=== PATIENT | female | born 1975 | race Caucasian/White ===

== ENCOUNTER → 2019-08-18 11:30 | Outpatient (BNVA) | payer OTHER, SELFPAY | PROVIDERS: Family Provider Nurse Practitioner Family; Visit Provider Nurse Practitioner | DX: B34.9 Viral infection, unspecified (principal); Z20.828 Contact with and (suspected) exposure to other viral communicable diseases | CPT/HCPCS: 87635 ==

== ENCOUNTER → 2019-08-23 16:18 | Outpatient (BNVA) | payer OTHER, SELFPAY | PROVIDERS: Family Provider Nurse Practitioner Family; Visit Provider Nurse Practitioner Family | DX: R06.02 Shortness of breath (principal); J18.9 Pneumonia, unspecified organism | CPT/HCPCS: 71046 ==

== ENCOUNTER 2019-08-24 16:47 | Emergency (ER) | payer OTHER, SELFPAY ==
[2019-08-24 16:56] VITALS: BMI 26.6
--- NOTE | 2019-08-24 17:34 | XR_ITS ---
WS: [id number] PORTABLE CHEST HISTORY: cough COMPARISON: 08/23/2019 Moderate pulmonary hyperinflation. Increased thickening throughout both lungs, greatest on the LEFT. Slight improvement since the prior radiograph of 08/23/2019. No pleural effusion or pneumothorax. Cardiac size: Normal. Mediastinum/Aorta: Normal mediastinum. No osseous abnormality seen. XR/XR chest 1V portable [id number] IMPRESSION: 1. Hyperinflation with bilateral scattered ill-defined opacifications, likely pneumonia. 2. Emphysema.
[2019-08-24] MEDS: cefTRIAXone 1,000 MG in sodium chloride 0.9% (plus) 50 ML 100 MG IV (18:08)
--- NOTE | 2019-08-24 18:08 | ED_ITS ---
HPI - SOB/Dyspnea General: Chief Complaint: Shortness of Breath/Dyspnea Stated Complaint: COUGH/SOB Time Seen by Provider: 08/24/19 17:28 History of Present Illness: HPI Narrative: Chely is a 44-year-old female who comes in with a complaint of 1 week of dyspnea. She has a cough productive of yellow and green sputum. She has subjective fevers. Initially she was tested for COVID-19 but this was found to be negative. The patient continues to cough and feels short of breath and does not feel better clinically. Because of this she was sent here for repeat testing and further evaluation. Patient denies any chronic medical problems and is not a smoker. She has no chest pain. Associated symptoms: Reports hemoptysis; Deny abdominal pain, chest congestion, chest pain, diaphoresis, dizziness, extremity pain, fever(s), nausea, orthopnea, palpitations, polydipsia, syncope or vomiting Review of Systems General: Reports: other (negative unless marked) Const: Reports: chills, body aches, fatigue, malaise and night sweats; Denies: fever or diaphoresis Eyes: Denies: change in vision or blurry vision ENMT: Denies: throat pain, painful swallowing, hoarseness, ear pain, ear discharge, Change in hearing or nasal discharge Card: Denies: chest pain, palpitations, irregular heart rhythm, syncope, pre- syncope, shortness of breath on exertion or shortness of breath when lying down Resp: Reports: shortness of breath, productive cough, change in phlegm color and coughing up blood; Denies: non-productive cough, wheezing or chest congestion GI: Denies: abdominal pain, nausea, vomiting, vomiting blood, coffee grounds in vomit, diarrhea, constipation, cramping, blood in stool or black tarry stool : Denies: flank pain, painful urination, urinary frequency, urinary urgency, decreased urine ouput, urinary incontinence or blood in urine Musc: Denies: neck pain, back pain, extremity pain, extremity swelling, joint pain, joint swelling, joint warmth or joint stiffness Skin/Breast: Denies: rash, skin tenderness or yellow skin Neuro: Denies: headache, numbness in extremities, weakness in extremities, changes in sensation, lack of coordination, difficulty walking, dizziness, vertigo or confusion Endo: Denies: excessive thirst, tired all the time, cold intolerance, excessive sweating, flushing or hot flashes Don/Lymph: Denies: easy bruising, easy bleeding, petechiae or enlarged lymph nodes All/Imm: Denies: hives, throat swelling, tongue swelling, facial swelling or acute wheezing PFSH ED PFSH: Medical History (Updated 08/24/19 @ 20:35 by Carolina Rosario) No pertinent past medical history Surgical History (Updated 08/24/19 @ 18:21 by Carolina Rosario) History of cholecystectomy Social History Smoking and tobacco status: never smoked Physical Exam Const: COMMON NORMALS: no apparent distress, oriented x3, no limitations, healthy appearing and well nourished EXAM LIMITATIONS: no altered mental status GENERAL APPEARANCE: cooperative, well kempt and well developed ORIENTATION/CONSCIOUSNESS: Yes awake HENMT: COMMON NORMALS: normocephalic, head/scalp atraumatic, hearing grossly normal bilaterally, external ears normal, EAC's normal, external nose normal and moist oral mucous membranes HEAD & SCALP: normal to inspection, normocephalic and atraumatic FACE & SINUS: normal facial exam and face symmetric NOSE: external nose normal and nares normal EXTERNAL EAR: Yes external ears normal EXTERNAL AUDITORY CANAL: EAC's normal MOUTH: oral and palatal mucosa normal and tongue normal Eye: COMMON NORMALS: PERRL, EOMs intact bilaterally, conjunctivae normal and no scleral icterus GENERAL EYE: normal appearance of both eyes and normal light reflex CONJUNCTIVA: Yes conjunctivae normal SCLERA: sclerae normal CORNEA: Yes corneas normal PUPIL: Yes PERRL DIRECT OPHTHALMOSCOPY: Yes normal light reflex Neck/C-Spine: COMMON NORMALS: full ROM, no lymphadenopathy, supple, no meningeal signs and no JVD GENERAL: Yes normal visual inspection and Yes trachea midline CERVICAL SPINE: Yes cervical ROM normal Chest: COMMONS NORMALS: inspection of chest normal and palpation of chest normal Resp: COMMON NORMALS: normal respiratory effort, no retractions, no use of accessory muscles and clear to auscultation bilaterally EFFORT & INSPECTION: Yes able to speak in complete sentences AUSCULTATION: clear to auscultation bilaterally Cardio: COMMON NORMALS: no JVD, regular rate, regular rhythm, S1 normal heart sound, S2 normal heart sound, no gallops, no clicks, no murmurs and no rub JUGULAR VENOUS DISTENTION: no JVD RATE: regular rate RHYTHM: regular rhythm HEART SOUNDS: S1 normal and S2 normal GI: COMMON NORMALS: soft to palpation, non-tender, no hepatosplenomegaly and no masses INSPECTION: Yes normal to inspection PALPATION: Yes soft and Yes no hepatosplenomegaly : COMMON NORMALS: Yes no CVA tenderness BLADDER/KIDNEY EXAM: Yes no CVA tenderness Back/Pelvis: COMMON NORMALS: no CVA tenderness, thoracic and lumbar spine normal to inspection, no thoracic nor lumbar tenderness and thoraco-lumbar ROM normal Extremity: COMMON NORMALS: normal to inspection, full ROM, normal capillary refill, no joint enlargement, no clubbing, cyanosis or edema and no calf tenderness Neuro: COMMON NORMALS: oriented x3, CN's II-XII intact bilaterally, moves all extremities, no focal motor deficits and no sensory deficits noted MENINGEAL SIGNS: Yes no meningeal signs Psych: COMMON NORMALS: mental status grossly normal, thought process normal, cooperative, affect normal, speech normal and activity/motor behavior normal APPEARANCE: Yes well kempt SPEECH: Yes normal speech THOUGHT PROCESS: normal thought process Skin: COMMON NORMALS: no rashes or lesions noted, skin turgor normal, no jaundice, no petechiae and no mottling GENERAL SKIN EXAM: no rashes or lesions noted and turgor normal Course Vital Signs: Vital signs: Vital Signs Pulse Rate 91 08/24/19 20:00 Respiratory Rate 20 H 08/24/19 20:00 Blood Pressure 106/66 08/24/19 20:00 Pulse Oximetry 96 08/24/19 20:00 MDM - SOB/Dyspnea MDM Narrative: Medical decision making narrative: Chely is a very nice 44-year-old female who comes in at the request of her nurse practitioner for recheck of her pneumonia. She also wanted repeat COVID-19 testing performed. This test has been sent. The patient has multilobar pneumonia but is not hypoxic, not tachypneic and does not show any sign of sepsis or severe illness clinically. Her CURB 65 score is 0 and her pneumonia severity index score is 34 indicating a 0.1% mortality rate. I reviewed the case with Dr. Harris who states that he feels the patient can go home but will need to change her antibiotic coverage from Augmentin to Levaquin. He thinks that she should be fine at home with her age and having no comorbidities. She is only been on the Augmentin for 5 days but I have told her that she needs to stop this now that she is on Levaquin. Nonetheless because she is had a cough occasional of blood-tinged only on 1 or 2 episodes I have offered to admit her to the hospital but she declines. She states that she is feeling much better and wants to go home and wants to be with her children. She does understand that she needs to be on self quarantine and she is potentially infectious. Her CT did not show groundglass infiltrates consistent with the coronavirus but shows classic bronchopulmonary pneumonia. The patient does agree to return should she worsen and she knows that she can call EMS if necessary. Lab Data: Attestation: I reviewed the patient's lab results. Labs: Lab Results 08/24/19 08/24/19 08/24/19 Range/Units 17:47 17:47 17:47 WBC 8.6 (4.0-10.0) 10^3/ uL RBC 4.92 (4.1-5.3) 10^6/u L Hgb 13.4 (11.5-15.3) g/dL Hct 42.7 (37.0-47.0) % MCV 86.8 (81-99) fL MCH 27.2 L (28.0-34.0) pg MCHC 31.4 (30.0-36.0) g/dL RDW 13.2 (12.1-15.1) % Plt Count 458 H (130-400) 10^3/c mm MPV 10.7 H (7.4-10.4) fL Neut % (Auto) 57.9 % Lymph % (Auto) 29.8 % [place] % (Auto) 6.2 % Eos % (Auto) 4.2 % Baso % (Auto) 0.6 % Neut # (Auto) 5.0 (1.8-7.7) 10^3/u L Lymph # (Auto) 2.6 (0.8-4.8) 10^3/u L [place] # (Auto) 0.5 (0.2-0.9) 10^3/u L Eos # (Auto) 0.4 (0.0-0.8) 10^3/u L Baso # (Auto) 0.1 (0.0-0.1) 10^3/u L Nucleated RBC % (a uto) 0 % Nucleated RBCs # 0.0 /100WBC D-Dimer 0.60 H (0-0.59) ug/mIFE U Specimen Type Sample Site ABG pH (7.35-7.45) ABG pCO2 (35-45) mmHg ABG pO2 (80.0-100.0) mmH g ABG HCO3 (22-26) mmol/L ABG Base Excess (-2.0-2.0) mmol/ L Vicente Test Hematocrit (37-47) % O2 Delivery Device Product Assurance Engineer ID Sodium 139 (136-145) mmol/L Potassium 4.1 (3.5-5.1) mmol/L Chloride 100 (98-107) mmol/L Carbon Dioxide 25 (22-29) mmol/L Anion Gap 18.1 (5-19) BUN 9 (6-20) mg/dL Creatinine 0.5 (0.5-0.9) mg/dL GFR Calculation 134.0 H (90-130) mL/min Glucose 97 (65-115) mg/dL Calculated Osmolal ity 284 L (285-295) mOsm/k g Lactic Acid (0.5-2.2) mmol/L Calcium 9.7 (8.5-10.5) mg/dL Total Bilirubin 0.3 (0.15-1.2) mg/dL AST 24 (0-32) U/L ALT 52 H (0-33) U/L Alkaline Phosphata se 186 H (35-105) IU/L Total Protein 7.8 (6.6-8.7) g/dL Albumin 4.1 (3.5-5.2) g/dL Globulin 3.7 (1.3-4.6) g/dL Influenza Type A A g (Negative) Influenza Type B A g (Negative) 08/24/19 08/24/19 08/24/19 Range/Units 17:47 18:29 18:35 WBC (4.0-10.0) 10^3/ uL RBC (4.1-5.3) 10^6/u L Hgb (11.5-15.3) g/dL Hct (37.0-47.0) % MCV (81-99) fL MCH (28.0-34.0) pg MCHC (30.0-36.0) g/dL RDW (12.1-15.1) % Plt Count (130-400) 10^3/c mm MPV (7.4-10.4) fL Neut % (Auto) % Lymph % (Auto) % [place] % (Auto) % Eos % (Auto) % Baso % (Auto) % Neut # (Auto) (1.8-7.7) 10^3/u L Lymph # (Auto) (0.8-4.8) 10^3/u L [place] # (Auto) (0.2-0.9) 10^3/u L Eos # (Auto) (0.0-0.8) 10^3/u L Baso # (Auto) (0.0-0.1) 10^3/u L Nucleated RBC % (a uto) % Nucleated RBCs # /100WBC D-Dimer (0-0.59) ug/mIFE U Specimen Type Arterial Sample Site Radial, right ABG pH 7.51 H (7.35-7.45) ABG pCO2 26.9 L (35-45) mmHg ABG pO2 146.0 H (80.0-100.0) mmH g ABG HCO3 21.4 L (22-26) mmol/L ABG Base Excess -0.5 (-2.0-2.0) mmol/ L Vicente Test Pos Hematocrit 38.4 (37-47) % O2 Delivery Device Room air Product Assurance Engineer ID broma Sodium (136-145) mmol/L Potassium (3.5-5.1) mmol/L Chloride (98-107) mmol/L Carbon Dioxide (22-29) mmol/L Anion Gap (5-19) BUN (6-20) mg/dL Creatinine (0.5-0.9) mg/dL GFR Calculation (90-130) mL/min Glucose (65-115) mg/dL Calculated Osmolal ity (285-295) mOsm/k g Lactic Acid 1.0 (0.5-2.2) mmol/L Calcium (8.5-10.5) mg/dL Total Bilirubin (0.15-1.2) mg/dL AST (0-32) U/L ALT (0-33) U/L Alkaline Phosphata se (35-105) IU/L Total Protein (6.6-8.7) g/dL Albumin (3.5-5.2) g/dL Globulin (1.3-4.6) g/dL Influenza Type A A g Negative (Negative) Influenza Type B A g Negative (Negative) Imaging Data^: CXR: Attestation: I personally reviewed and interpreted this imaging study as fol lows: My impression: Left upper and left lower lobe infiltrates. Probable right lower lobe infiltrate. Similar possibly slightly better than previous x-ray of [address] Chest: Radiologist's impression: [place] [address] CT Scan Report Signed Patient: Chely Lopez Unit #: [id number] : [id number] Age/Sex: 44 / F ADM Date: 08/24/19 Loc: ER Room/Bed: Attending Dr: Ordering Provider/Ordering MD: Carolina Rosario DO Date of Service: 08/24/19 Procedure(s): CT angio chest PE protcl [id number] Accession Number(s): [id number] Report Number: [id number] PROCEDURE INFORMATION: Exam: CT Angiography Chest With Contrast Exam date and time: 08/24/2019 6:59 PM Age: 44 years old Clinical indication: Cough and dyspnea; Chest pain and other: Pain between shoulder blades TECHNIQUE: Imaging protocol: Computed tomographic angiography of the chest with intravenous contrast. 3D rendering: MIP and/or 3D reconstructed images were created by the technologist. Total DLP: 621.54 mGy-cm Radiation optimization: All CT scans at this facility use at least one of these dose optimization techniques: automated exposure control; mA and/or kV adjustment per patient size (includes targeted exams where dose is matched to clinical indication); or iterative reconstruction. Contrast material: OMNI 350; Contrast volume: 69 ml; Contrast route: IV; COMPARISON: CR XR chest 1V portable [id number] 08/24/2019 5:50 PM FINDINGS: Pulmonary arteries: There is no evidence of filling defects within the pulmonary arterial circulation to suggest pulmonary embolism. Aorta: Unremarkable. No aortic aneurysm. No aortic dissection. Lungs: There is mild bronchial wall thickening in bronchi in the left upper lobe with areas of atelectasis and consolidation in a peribronchial pattern in the posterior aspect of the left apex and also in more anterior segments in keeping with some bronchopneumonia. There is small area of atelectasis and bronchial wall thickening in the lateral basal portion of the left lower lobe which may represent additional bronchopneumonia in small areas of similar finding in the posterior basal and medial basal segments of the right lower lobe. Findings most likely represent some multifocal bronchitis and bronchopneumonia. Correlation with the clinical history and findings is suggested. Pleural space: There are no pleural effusions present. Heart: Unremarkable. No cardiomegaly. No pericardial effusion. Lymph nodes: There are enlarged lymph nodes in the left AP window measuring up to 13 x 19 mm, likely reactive adenopathy. Bones/joints: Unremarkable. No acute fracture. Soft tissues: Unremarkable. CT/CT angio chest PE protcl [id number] IMPRESSION: 1. No evidence of pulmonary embolism. 2. Bilateral bronchopneumonia. Radiation Dose CTDIVOL = (mGy): DLP = 621.54 (mGy-cm) Dictated By: Brian Real Signed By: Brian Real Signed Date/Time: 08/10 DD/ 23 Discharge Plan Discharge Patient Disposition: Home, Self-Care Clinical Impression: Community acquired pneumonia Qualifiers: Laterality: unspecified laterality Qualified Code(s): J18.9 - Pneumonia, unspecified organism Condition: Stable Prescriptions: New Levaquin 750 mg tablet 750 mg PO DAILY 7 Days RF: 0 No Action amoxicillin-pot clavulanate [Augmentin] 875-125 mg tablet 1 tab PO BID Qty: 20 RF: 0 acetaminophen 325 mg Tablet 325 mg PO QID PRN (Reason: FEVER/PAIN) RF: 0 ibuprofen 800 mg Tablet 800 mg PO Q6H PRN (Reason: FEVER/PAIN) RF: 0 Vicks DayQuil Cough 5 mg/5 mL Syrup 10 mg PO Q4H PRN (Reason: Cough) RF: 0 [facility] NyQuil Cold-C 2-15 mg/15 mL Liquid See Rx Instructions .ROUTE .COMPLEX RF: 0 Discharge Orders: Discharge Order (Routine); Ordered 08/24/19 Ordered By: Carolina Rosario Referrals: WILBERTO Pack, SAVAGE [Primary Care Provider] - 1-3 days Shanique Harris MD [Physician] - 1-3 days (Call Dr. Harris's office tomorrow as he wants to see how you are doing.) Discharge Diet: Advance as tolerated Discharge Activity: Increase activity as tolerated Patient Instructions: Bacterial Pneumonia (ED) Activity Restrictions/Additional Instructions: Please return to the ER immediately for any of the signs or symptoms listed on your discharge instruction sheets, worsening/changing of your symptoms, you are not getting better as quickly as expected, or for ANY other cause or concerns. You have been offered admission for further observation and care but have declined. If you change your mind or your symptoms change/worsen in any way please call EMS or return to the ER immediately for recheck and further evaluation and care. Be certain to get in contact with WILBERTO pack as well as Dr. Harris's office tomorrow. Coding Level of Care Code ED Transitional Kindergarten Teacher for Chg Fwd Exam Comprehensive
[2019-08-24 18:16] LABS: Basophils # 0.1 10^3/uL (0.0-0.1); Basophils % 0.6 %; Eosinophils # 0.4 10^3/uL (0.0-0.8); Eosinophils % 4.2 %; Hematocrit 42.7 % (37.0-47.0); Hemoglobin 13.4 g/dL (11.5-15.3); Lymphocytes # 2.6 10^3/uL (0.8-4.8); Lymphocytes % 29.8 %; Mean Corpuscular HGB Conc 31.4 g/dL (30.0-36.0); Mean Corpuscular Hemoglobin 27.2 pg (28.0-34.0); Mean Corpuscular Volume 86.8 fL (81-99); Mean Platelet Volume 10.7 fL (7.4-10.4); Monocytes # 0.5 10^3/uL (0.2-0.9); Monocytes % 6.2 %; Neutrophils % 57.9 %; Nucleated Red Blood Cells % 0 %; Platelet Count 458 10^3/cmm (130-400); Red Blood Count 4.92 10^6/uL (4.1-5.3); Red Cell Distribution Width 13.2 % (12.1-15.1); White Blood Count 8.6 10^3/uL (4.0-10.0)
--- NOTE | 2019-08-24 18:18 | CTR_ITS ---
PROCEDURE INFORMATION: Exam: CT Angiography Chest With Contrast Exam date and time: 08/24/2019 6:59 PM Age: 44 years old Clinical indication: Cough and dyspnea; Chest pain and other: Pain between shoulder blades TECHNIQUE: Imaging protocol: Computed tomographic angiography of the chest with intravenous contrast. 3D rendering: MIP and/or 3D reconstructed images were created by the technologist. Total DLP: 621.54 mGy-cm Radiation optimization: All CT scans at this facility use at least one of these dose optimization techniques: automated exposure control; mA and/or kV adjustment per patient size (includes targeted exams where dose is matched to clinical indication); or iterative reconstruction. Contrast material: OMNI 350; Contrast volume: 69 ml; Contrast route: IV; COMPARISON: CR XR chest 1V portable [id number] 08/24/2019 5:50 PM FINDINGS: Pulmonary arteries: There is no evidence of filling defects within the pulmonary arterial circulation to suggest pulmonary embolism. Aorta: Unremarkable. No aortic aneurysm. No aortic dissection. Lungs: There is mild bronchial wall thickening in bronchi in the left upper lobe with areas of atelectasis and consolidation in a peribronchial pattern in the posterior aspect of the left apex and also in more anterior segments in keeping with some bronchopneumonia. There is small area of atelectasis and bronchial wall thickening in the lateral basal portion of the left lower lobe which may represent additional bronchopneumonia in small areas of similar finding in the posterior basal and medial basal segments of the right lower lobe. Findings most likely represent some multifocal bronchitis and bronchopneumonia. Correlation with the clinical history and findings is suggested. Pleural space: There are no pleural effusions present. Heart: Unremarkable. No cardiomegaly. No pericardial effusion. Lymph nodes: There are enlarged lymph nodes in the left AP window measuring up to 13 x 19 mm, likely reactive adenopathy. Bones/joints: Unremarkable. No acute fracture. Soft tissues: Unremarkable. CT/CT angio chest PE protcl [id number] IMPRESSION: 1. No evidence of pulmonary embolism. 2. Bilateral bronchopneumonia. Radiation Dose CTDIVOL = (mGy): DLP = 621.54 (mGy-cm)
[2019-08-24 18:37] LABS: Alanine Aminotransferase 52 U/L (0-33); Albumin Level 4.1 g/dL (3.5-5.2); Alkaline Phosphatase 186 IU/L (35-105); Anion Gap 18.1 (5-19); Aspartate Amino Transferase 24 U/L (0-32); Blood Urea Nitrogen 9 mg/dL (6-20); Calcium 9.7 mg/dL (8.5-10.5); Carbon Dioxide 25 mmol/L (22-29); Chloride 100 mmol/L (98-107); Globulin 3.7 g/dL (1.3-4.6); Glucose 97 mg/dL (65-115); Osmolality Calculated 284 mOsm/kg (285-295); Potassium 4.1 mmol/L (3.5-5.1); Sodium 139 mmol/L (136-145); Total Bilirubin 0.3 mg/dL (0.15-1.2); Total Protein 7.8 g/dL (6.6-8.7)
[2019-08-24 18:40] LABS: ABG PCO2 26.9 mmHg (35-45); ABG PH Result 7.51 (7.35-7.45); Arterial Blood Gas Hematocrit 38.4 % (37-47); Base Excess ABG -0.5 mmol/L (-2.0-2.0); Blood Gas Allen Test Pos; Blood Gas Sample Site Radial, right; Blood Gas Sample Type Arterial; HCO3 ABG 21.4 mmol/L (22-26); Oxygen Device ROOM AIR
[2019-08-24 18:46] VITALS: BP 124/76; PULSE 62; RESP 18; O2SAT 98
[2019-08-24] MEDS: iohexol 350 mg/mL 100 mL Btl IV (19:03)
[2019-08-24 19:23] LABS: Slide Review Slide Review Perform
[2019-08-24 20:00] VITALS: BP 106/66; PULSE 91; RESP 20; O2SAT 96
[2019-08-24 20:36] LABS: Influenza A by IFA Negative (Negative); Influenza B by IFA Negative (Negative)
[2019-08-24 21:00] VITALS: BP 109/68; PULSE 94; RESP 18; O2SAT 96
[2019-08-24] MEDS: sodium chloride 0.9% 1,000 ML 999 ML IV (21:03)
[2019-08-24] MEDS: levoFLOXacin 750 mg Tablet PO (21:04)
[2019-08-24 23:32] VITALS: PULSE 77; RESP 16; O2SAT 97
--- NOTE | 2019-08-26 13:03 | DCPLANNER ---
rollout manager had message to schedule a follow up appointment for patient with [facility]. rollout manager called [facility], a follow up appointment is scheduled for August at 2:[address] Harris. Clinic will call patient with appointment information.
--- NOTE | 2019-10-28 15:17 | DCPLANNER ---
Patient did attend appointment scheduled with [facility] on 09.02.19.
== END 2019-08-24 23:33 | disposition home or self-care (01) ==
PROVIDERS: Emergency Provider Emergency Medicine; Family Provider Nurse Practitioner Family; PCP Nurse Practitioner Family
DX: J18.9 Pneumonia, unspecified organism (principal)
CPT/HCPCS: 12345; 36415; 36600; 71045; 71275; 80053; 82803; 83605; 85025; 85378; 87635; 87804; 96361; 96365; 99283; 99284; J0696; J7030; Q9967

== ENCOUNTER 2019-10-13 10:18 | Outpatient (CLI) | payer OTHER, SELFPAY ==
--- NOTE | 2019-10-13 10:26 | XR_ITS ---
WS: [id number] XR chest 2V* [id number] REASON FOR EXAM: Pneumonia FINDINGS: Hyper aerated lungs are seen. Mild pectus excavatum changes. The peripheral lung show no pneumonia, pleural effusion, pulmonary edema, or mass effect. The heart and mediastinum are normal. XR/XR chest 2V* [id number] IMPRESSION: Mild chronic obstructive pulmonary disease.
[2019-10-13 10:51] LABS: Basophils % 0.3 %; Eosinophils # 0.1 10^3/uL (0.0-0.8); Eosinophils % 1.3 %; Hematocrit 44.1 % (37.0-47.0); Hemoglobin 13.6 g/dL (11.5-15.3); Lymphocytes # 2.1 10^3/uL (0.8-4.8); Mean Corpuscular HGB Conc 30.8 g/dL (30.0-36.0); Mean Corpuscular Hemoglobin 27.1 pg (28.0-34.0); Mean Platelet Volume 11.8 fL (7.4-10.4); Monocytes # 0.5 10^3/uL (0.2-0.9); Monocytes % 6.7 %; Neutrophils # 4.2 10^3/uL (1.8-7.7); Neutrophils % 61.4 %; Nucleated Red Blood Cells % 0 %; Platelet Count 150 10^3/cmm (130-400); Red Blood Count 5.01 10^6/uL (4.1-5.3); Red Cell Distribution Width 14.2 % (12.1-15.1); White Blood Count 6.9 10^3/uL (4.0-10.0)
[2019-10-14 17:51] LABS: Immunoglobulin E 3 kU/L (<OR=114)
[2019-10-15 18:11] LABS: Alternaria Alternata (M6) Ige <0.10 kU/L; Alternaria Class 0; Bermuda Class 0; Bermuda Grass (G2) Ige <0.10 kU/L; Cat Dander (E1) Ige <0.10 kU/L; Cat Dander Class 0; Common Ragweed (Short) (W1) Ig <0.10 kU/L; D. Farinae Class 0; Dermatophagoides Class 0; Dermatophagoides Farinae (D2) <0.10 kU/L; Dermatophagoides Pteronyssinus <0.10 kU/L; Dog Dander (E5) Ige <0.10 kU/L; Dog Dander Class 0; Elm (T8) Ige <0.10 kU/L; Elm Class 0; English Plantain (W9) Ige <0.10 kU/L; English Plantain Class 0; House Dust (Greer) (H1) Ige <0.10 kU/L; House Dust (Hollister- Stier) <0.10 kU/L; House Dust Class 0; Immunoglobulin E 4 kU/L (<OR=114); Johnson Grass (G10) Ige <0.10 kU/L; Johnson Grass Cl 0; June Grass Class 0; June Grass(Kentucky Blue) (G8) <0.10 kU/L; Lamb'S Quarters (Goose Foot) <0.10 kU/L; Lamb'S Quarters Class 0; Maple (Box Elder) (T1) Ige <0.10 kU/L; Maple Class 0; Meadow Fescue (G4) Ige <0.10 kU/L; Meadow Fescue Class 0; Mucor Racemosus Class 0; Oak (T7) Ige <0.10 kU/L; Oak Class 0; Orchard Grass (Cocksfoot) (G3) <0.10 kU/L; Penicillium Class 0; Penicillium Notatum (M1) Ige <0.10 kU/L; Perennial Rye Grass (G5) Ige <0.10 kU/L; Perennial Rye Grass Class 0; Ragweeed Class 0; Rough Marsh Elder (W16) Ige <0.10 kU/L; Rough Marsh Elder Class 0; Sweet Vernal Class 0; Sweet Vernal Grass (G1) Ige <0.10 kU/L; Timothy Grass (G6) Ige <0.10 kU/L; Timothy Grass Class 0
[2019-10-19 18:46] LABS: Aspergillus Fumigatus, Igg Ab, 35.8 mg/L (<=102)
== END 2019-10-13 10:19 | disposition home or self-care (01) ==
LOC: RAD 10:23
PROVIDERS: Family Provider Nurse Practitioner Family; PCP Nurse Practitioner Family; Visit Provider Internal Medicine Critical Care Medicine
DX: J45.909 Unspecified asthma, uncomplicated (principal); J18.9 Pneumonia, unspecified organism; R06.02 Shortness of breath; J44.9 Chronic obstructive pulmonary disease, unspecified
CPT/HCPCS: 36415; 71046; 85025

== ENCOUNTER 2019-11-15 07:11 | Outpatient (CLI) | payer OTHER, SELFPAY ==
--- NOTE | 2019-11-15 12:16 | PFTS_ITS ---
Date of Study:11/15/19 Date of Dictation: MECHANICS: Forced vital capacity (FVC) is reduced. Forced expiratory volume in one second (FEV1) is reduced. FEV1/FVC is normal. FLOW VOLUME LOOP: Reduced flow at lower lung volumes. LUNG VOLUMES: Total lung capacity (TLC) is mildly reduced. Residual volume (RV) is normal. DIFFUSING CAPACITY FOR CARBON MONOXIDE: Normal. INTERPRETATION: The pulmonary function tests are consistent with mild restriction. There is no significant postbronchodilator response. There is mild reduction of total lung capacity consistent with mild restriction. Gas exchange (DLCO) is normal. MTDD
== END 2019-11-15 07:12 | disposition home or self-care (01) ==
LOC: RT 07:11
PROVIDERS: Family Provider Nurse Practitioner Family; PCP Nurse Practitioner Family; Visit Provider Internal Medicine Critical Care Medicine
DX: J45.909 Unspecified asthma, uncomplicated (principal)
CPT/HCPCS: 94060; 94726; 94729; J7611

== ENCOUNTER → 2020-12-21 10:39 | Outpatient (BNVA) | payer OTHER, SELFPAY | PROVIDERS: Family Provider Nurse Practitioner Family; PCP Nurse Practitioner Family; Visit Provider Nurse Practitioner Family | DX: Z20.822 Contact with and (suspected) exposure to COVID-19 (principal) | CPT/HCPCS: 87635 ==

== ENCOUNTER 2020-12-27 07:00 | Outpatient (CLI) | payer OTHER, SELFPAY ==
[2020-12-27 07:32] VITALS: BP 114/74; PULSE 85; RESP 16; TEMP 36.8; O2SAT 97; BMI 28.3
[2020-12-27 07:58] VITALS: BP 101/67; PULSE 80; RESP 18; O2SAT 98
[2020-12-27 08:40] VITALS: BP 101/67; PULSE 80; RESP 18; TEMP 36.7; O2SAT 98
== END 2020-12-27 07:01 | disposition home or self-care (01) ==
PROVIDERS: PCP Nurse Practitioner Family; Visit Provider Nurse Practitioner
DX: U07.1 COVID-19 (principal)
CPT/HCPCS: 96365

== ENCOUNTER 2021-02-08 15:06 | Outpatient (CLI) | payer OTHER, SELFPAY ==
--- NOTE | 2021-02-08 15:00 | US_ITS ---
WS: [id number] ULTRASOUND SOFT TISSUES medial RIGHT thigh. HISTORY: R22.41 - Localized swelling, mass and lump, right lower limb COMPARISON: None available. TECHNIQUE: 2-D and color Doppler imaging is submitted. Ultrasound is instructed to the medial RIGHT thigh in the area of concern. Normal soft tissues and ve ssels. There are a few lymph nodes along the high medial RIGHT thigh. These lymph nodes are normal. US/US soft tissue/extremity [id number] IMPRESSION: Benign lymph nodes near the area of patient concern. No suspicious or concernin g masses.
== END 2021-02-08 15:07 | disposition home or self-care (01) ==
LOC: US 15:09
PROVIDERS: PCP Nurse Practitioner Family; Visit Provider Nurse Practitioner Family
DX: R22.41 Localized swelling, mass and lump, right lower limb (principal)
CPT/HCPCS: 76882

== ENCOUNTER → 2023-03-10 10:37 | Outpatient (BNVA) | payer BC, SELFPAY | PROVIDERS: PCP Family Medicine; Visit Provider Nurse Practitioner Women's Health | DX: Z20.2 Contact with and (suspected) exposure to infections with a predominantly sexual mode of transmission (principal); Z12.39 Encounter for other screening for malignant neoplasm of breast | CPT/HCPCS: 87491; 87591 ==

== ENCOUNTER 2023-03-28 09:53 | Outpatient (CLI) | payer BC, SELFPAY ==
--- NOTE | 2023-03-28 09:59 | MM_ITS ---
WS: [id number] VIEWS: MLO and CC views both breasts. 3D digital tomosynthesis is also included in this exam. Baseline study Findings: Questionable partially obscured approximate 1.8 cm lobulated nodule in the upper lateral RIGHT breast seen on the MLO tomograms. This cannot be identified on the CC images. Magnification compression spo t images and regional ultrasound would be recommended for further work-up. The remaining aspects of b oth breasts are unremarkable. The breasts are very dense which lowers the sensitivity of mammography for this patient. Impression: MM/[place] [id number] BI-RADS: 0-Incomplete: Need additional imaging evaluation FOLLOW-UP: See Report This mammogram was also analyzed by the Computer Aided Detection System R2 Imag e Fluorescent Lighting Model Maker.
== END 2023-03-28 09:54 | disposition home or self-care (01) ==
LOC: RAD 09:53
PROVIDERS: PCP Family Medicine; Visit Provider Nurse Practitioner Women's Health
DX: Z12.31 Encounter for screening mammogram for malignant neoplasm of breast (principal)
CPT/HCPCS: 77063; 77067

== ENCOUNTER 2023-04-24 09:52 | Outpatient (CLI) | payer BC, SELFPAY ==
--- NOTE | 2023-04-24 09:59 | MM_ITS ---
WS: [id number] VIEWS: MLO, CC, and ML views of the RIGHT breast. 3D digital tomosynthesis is also included in this exam. Comparison made with prior exam of 03/28/2023. Findings: There was no sign of suspicious mass, tumor calcification or architectural distortion on additional i mages of the RIGHT breast. The RIGHT breast is heterogeneously dense which might obscure small masses . Additional evaluation with regional ultrasound of the RIGHT breast is suggested. Impression: MM/[place] [id number] BI-RADS: 0-Incomplete: Need additional imaging evaluation FOLLOW-UP: See Report This mammogram was also analyzed by the Computer Aided Detection System R2 Imag e Staffing Assistant.
--- NOTE | 2023-04-24 10:30 | US_ITS ---
WS: [id number] Exam: US breast RT limited* [id number] Date/Time of Exam: 04/24/2023 10:37 AM Reason For Exam: R92.8 - Other abnormal and inconclusive findings on diagn... Regional ultrasound of the upper outer quadrant of the RIGHT breast is performed. At the 9 o'clock position an intramammary lymph node with fatty replacement noted. No suspicious staci d nodular mass was noted in this region. IMPRESSION: 1. No suspicious ultrasound findings in the upper outer quadrant of the RIGHT breast. BI-RADS Category 2 Recommendations: Continue yearly screening mammography.
== END 2023-04-24 09:53 | disposition home or self-care (01) ==
LOC: RAD 09:53
PROVIDERS: PCP Family Medicine; Visit Provider Nurse Practitioner Women's Health
DX: R92.8 Other abnormal and inconclusive findings on diagnostic imaging of breast
CPT/HCPCS: 76642; 77061; G0279

== ENCOUNTER → 2024-03-23 16:00 | Outpatient (BNVA) | payer BC, SELFPAY | PROVIDERS: PCP Family Medicine; Visit Provider Nurse Practitioner Women's Health | DX: Z01.419 Encounter for gynecological examination (general) (routine) without abnormal findings (principal) | CPT/HCPCS: 80053; 82306; 83036; 84443; 85025 ==

== ENCOUNTER 2024-04-14 14:46 | Outpatient (CLI) | payer BC, SELFPAY ==
--- NOTE | 2024-04-14 15:00 | MM_ITS ---
WS: [id number] BILATERAL 3D TOMOSYNTHESIS DIGITAL SCREENING MAMMOGRAPHY WITH CAD CLINICAL INFORMATION: Z12.31 - Encounter for screening mammogram for malignant ... HISTORY: Screening mammogram. No current complaints. COMPARISON: 2022 TECHNIQUE: Bilateral CC and MLO views. FINDINGS: The breasts are composed of heterogeneous fibroglandular density tissue, which can limit the detectio n of small underlying mass lesions. No suspicious mass, asymmetry, calcifications, or architectural d istortion. No evidence of malignancy. Stable lobulated intramammary LEFT right breast posteriorly. St able nodular RIGHT breast tissue MM/MM scr tomosynthesis [id number] IMPRESSION: DENSITY: The breasts are heterogeneously dense, which may obscure small masses. BI-RADS: 2 - Benign FOLLOW UP: 1 Year Follow-up Recommend return to annual screening mammography.
== END 2024-04-14 14:47 | disposition home or self-care (01) ==
LOC: RAD 14:47
PROVIDERS: PCP Family Medicine; Visit Provider Nurse Practitioner Women's Health
DX: Z12.31 Encounter for screening mammogram for malignant neoplasm of breast (principal); R92.333 Mammographic heterogeneous density, bilateral breasts
CPT/HCPCS: 77063; 77067

== ENCOUNTER 2025-01-25 18:47 | Outpatient (CLI) | payer OTHER, SELFPAY ==
--- NOTE | 2025-01-25 18:57 | XRR_ITS ---
PROCEDURE INFORMATION: Exam: XR Left Ribs with PA Chest Exam date and time: 01/25/2025 7:05 PM Age: 49 years old Clinical indication: Chest wall pain and pleurodynia; Left; Additional info: Acute left lateral rib pain TECHNIQUE: Imaging protocol: Radiologic exam of the left ribs with PA chest. Views: 3 views COMPARISON: CR XR chest 2V* [id number] 10/13/2019 10:30 AM FINDINGS: Lungs: Mild atelectasis or scar in the inferior lingula. No consolidation. No pulmonary edema. Pleural spaces: Unremarkable. No pleural effusion. No pneumothorax. Heart/Mediastinum: Unremarkable. No cardiomegaly. Bones/joints: Unremarkable. No discrete rib fracture is radiographically apparent. XR/XR ribs LT mn 3V w CXR1V [id number] IMPRESSION: No acute findings. No rib fracture identified.
== END 2025-01-25 18:48 | disposition home or self-care (01) ==
PROVIDERS: PCP Family Medicine; Visit Provider Emergency Medicine
DX: R07.81 Pleurodynia (principal)
CPT/HCPCS: 71101

== ENCOUNTER → 2025-04-10 11:35 | Outpatient (BNVA) | payer BC, SELFPAY | PROVIDERS: PCP Family Medicine; Visit Provider Nurse Practitioner | DX: R50.9 Fever, unspecified (principal) | CPT/HCPCS: 87400; 87426 ==

== ENCOUNTER 2025-04-20 14:31 | Outpatient (CLI) | payer BC, SELFPAY ==
--- NOTE | 2025-04-20 14:40 | MM_ITS ---
WS: [id number] BILATERAL 3D TOMOSYNTHESIS DIGITAL SCREENING MAMMOGRAPHY WITH CAD CLINICAL INFORMATION: Z12.39 - Encounter for other screening for malignant neop... HISTORY: Screening mammogram. No current complaints. COMPARISON: 2023 TECHNIQUE: Bilateral CC and MLO views. FINDINGS: The breasts are composed of heterogeneous fibroglandular density tissue, which can limit the detection of small underlying mass lesions. No suspicious mass, asymmetry, calcifications, or architectural distortion. No evidence of malignancy. Incidental punctate calcifications. Stable lobulated intramammary lymph node upper outer LEFT breast. 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 BI-RADS: 2 - Benign FOLLOW UP: 1 Year Follow-up Recommend return to annual screening mammography.
== END 2025-04-20 14:32 | disposition home or self-care (01) ==
LOC: RAD 14:34
PROVIDERS: PCP Nurse Practitioner Family; Visit Provider Nurse Practitioner Women's Health
DX: Z12.31 Encounter for screening mammogram for malignant neoplasm of breast (principal); R92.333 Mammographic heterogeneous density, bilateral breasts; R92.323 Mammographic fibroglandular density, bilateral breasts; N63.21 Unspecified lump in the left breast, upper outer quadrant; R92.311 Mammographic fatty tissue density, right breast
CPT/HCPCS: 77063; 77067